=== PATIENT | male | born 1970 | race African-American/Black ===

== ENCOUNTER 2019-11-29 13:00 | Inpatient (IN) | payer MEDICAID ==
[~2019-11-29] VITALS: Ht 182.9 cm; Wt 86.6 kg
[2019-11-29] MEDS ORDERED: SODIUM CHLORIDE 0.9% 1,000 ML IV ONE ×2 (14:17→15:55)
[2019-11-29] MEDS ORDERED: KETOROLAC 30MG/ML VIAL IV STA (14:17)
[2019-11-29 14:41] LABS: CHLORIDE 100 mEq/L (98-107)
[2019-11-29 14:43] LABS: HEMATOCRIT. 45.8 % (42.0-52.0); HEMOGLOBIN. 15.6 g/dL (14.0-18.0); INR 1.1; MEAN CORPUSCULAR HEMOGLOBIN 28.5 pg (28.0-32.0); MEAN CORPUSCULAR VOLUME 83.8 fL (80.0-94.0); MEAN PLATELET VOLUME 8.5 fl (7.4-10.4); PARTIAL THROMBOPLASTIN TIME 32.8 sec (23.4-31.0); PLATELET 310 x1000/uL (130-400); PROTHROMBIN TIME 11.4 sec (9.6-11.0); RED BLOOD CELL COUNT 5.47 mill/uL (4.7-6.1); RED CELL DISTRIBUTION WIDTH 13.4 % (11.6-14.6)
[2019-11-29 14:44] LABS: CLARITY URINE TURBID (CLEAR); COLOR URINE DARK YELLOW (YELLOW); KETONES URINE TRACE (NEGATIVE); LEUKOCYTE ESTERASE URINE NEGATIVE (NEGATIVE); NITRITE URINE NEGATIVE (NEGATIVE); OCCULT BLOOD URINE 2+ (NEGATIVE); PROTEIN URINE 3+ (NEGATIVE)
[2019-11-29 15:18] LABS: PLATELET ESTIMATE NORMAL
[2019-11-29] MEDS ORDERED: MORPHINE SULFATE 4 MG/ML CPJ (NOT FOR IM USE) IV STA (15:55)
[2019-11-29] MEDS ORDERED: ONDANSETRON HCL 4MG/2ML INJ IV STA (15:55)
[2019-11-29] MEDS ORDERED: PIPERACILLIN/TAZ 3.375G PREMIX 50 ML IV ONE (16:00)
[2019-11-29] MEDS ORDERED: SKIN ADHESIVE 0.7 GM EA TOP ONE (16:42)
[2019-11-29] MEDS ORDERED: BUPIVACAINE HCL 0.5% (5MG/ML) 50ML ONE (16:43)
[2019-11-29] MEDS ORDERED: PROPOFOL 200MG/20ML VIAL IV ONE (16:53)
[2019-11-29] MEDS ORDERED: FENTANYL CITRATE/PF 50MCG/ML 2ML VIAL ONE (16:53)
[2019-11-29] MEDS ORDERED: MIDAZOLAM HCL 2 MG/2 ML VIAL ONE (16:53)
[2019-11-29] MEDS ORDERED: SUCCINYLCHOLINE CHLORIDE 200MG/10ML IV ONE (16:54)
[2019-11-29] MEDS ORDERED: ROCURONIUM BROMIDE 10MG/ML VIAL 5ML IV ONE (16:56)
[2019-11-29] MEDS ORDERED: EPHEDRINE SULFATE 50MG/ML VIAL ONE (17:02)
[2019-11-29] MEDS ORDERED: ESMOLOL HCL 10MG/ML 10ML VIAL IV ONE (17:42)
[2019-11-29] MEDS ORDERED: ACETAMINOPHEN 325MG TABLET PO PRN (17:45)
[2019-11-29] MEDS ORDERED: MORPHINE SULFATE 2 MG/ML CPJ (NOT FOR IM USE) IV PRN (17:45)
[2019-11-29] MEDS ORDERED: MORPHINE SULFATE 4 MG/ML CPJ (NOT FOR IM USE) IV PRN (17:45)
[2019-11-29] MEDS ORDERED: HYDROCODONE/ACETAMINOPHEN 5/325MG TABLET PO PRN ×2 (17:45)
[2019-11-29] MEDS ORDERED: PHENYLEPHRINE HCL 10 MG/ML 1ML (IV VIAL) IV ONE (18:00)
[2019-11-29] MEDS ORDERED: NEOSTIGMINE METHYLSULFATE 1MG/ML 10 ML VIAL ONE (18:28)
[2019-11-29] MEDS ORDERED: GLYCOPYRROLATE 0.2 MG/ML 2ML VIAL ONE (18:29)
[2019-11-29] MEDS ORDERED: DIPHENHYDRAMINE 50MG/ML VIAL IV PRN (18:30)
[2019-11-29] MEDS ORDERED: IPRATROPIUM/ALBUTEROL 0.5-3(2.5)MG/3ML NEB HHN PRN (18:30)
[2019-11-29 18:42] LABS: PHOSPHORUS 3.8 mg/dL (2.5-4.9)
[2019-11-29] MEDS ORDERED: HYDROMORPHONE HCL/PF 2MG/ML CPJ IV PRN (19:30)
[2019-11-29] MEDS ORDERED: CEFTRIAXONE 1 G PREMIX 50 ML IV SCH (20:00)
[2019-11-29] MEDS ORDERED: DEXT 5%/0.45% NACL KCL 20MEQ/L 1,000 ML IV SCH (20:00)
[2019-11-29] MEDS ORDERED: LABETALOL 5MG/ML SYR 20 MG/4 ML SYRINGE IV NR (20:20)
[2019-11-29 21:00] VITALS: BP 146/91
[2019-11-30] VITALS: BP 99/68
[2019-11-30] MEDS ORDERED: PIPERACILLIN/TAZ 3.375G PREMIX 50 ML IV SCH
[2019-11-30] MEDS: PIPERACILLIN/TAZOBACTAM 2.25 G in DEXTROSE 5% WATER 50 ML IV SCH ×5 (00:45→20:58)
[2019-11-30] MEDS: SODIUM CHLORIDE 0.9% 1,000 ML IV SCH ×3 (00:47→21:30)
[2019-11-30 04:00] VITALS: BP 95/59
[2019-11-30 06:55] LABS: HEMATOCRIT. 41.1 % (42.0-52.0); HEMOGLOBIN. 13.8 g/dL (14.0-18.0); MEAN CORPUSCULAR HEMOGLOBIN 28.1 pg (28.0-32.0); MEAN CORPUSCULAR VOLUME 83.8 fL (80.0-94.0); MEAN PLATELET VOLUME 8.6 fl (7.4-10.4); PLATELET 285 x1000/uL (130-400); RED BLOOD CELL COUNT 4.91 mill/uL (4.7-6.1); RED CELL DISTRIBUTION WIDTH 13.8 % (11.6-14.6)
[2019-11-30 07:29] LABS: CHLORIDE 105 mEq/L (98-107)
[2019-11-30 07:35] LABS: LDL CHOLESTEROL 36 mg/dL (5-100)
[2019-11-30 07:37] LABS: HDL CHOLESTEROL 17 mg/dL (40-59)
[2019-11-30] MEDS ORDERED: DEXTROSE 50% WATER 50ML SYRINGE IV PRN (07:45)
[2019-11-30] MEDS: INSULIN LISPRO 100 UNITS/ML SUBCUT SCH ×4 (07:50→21:34)
[2019-11-30 08:00] VITALS: BP 84/55
[2019-11-30] MEDS: BLOOD SUGAR DIAGNOSTIC STRIP TEST SCH ×4 (08:00→21:00)
[2019-11-30 12:00] VITALS: BP 95/61
[2019-11-30 12:42] LABS: PLATELET ESTIMATE NORMAL
[2019-11-30 16:00] VITALS: BP 102/68
[2019-11-30] MEDS ORDERED: ALBUMIN HUMAN 25GM/100ML (25%) IV SCH (16:00)
[2019-11-30 20:00] VITALS: BP 106/66
[2019-11-30] MEDS: SODIUM CHLORIDE 0.9% INJ 3ML FLUSH IVF SCH (21:30)
[2019-12-01] VITALS: BP 114/73
[2019-12-01] MEDS: PIPERACILLIN/TAZOBACTAM 2.25 G in DEXTROSE 5% WATER 50 ML IV SCH ×4 (02:17→20:42)
[2019-12-01 04:00] VITALS: BP 117/74
[2019-12-01] MEDS: SODIUM CHLORIDE 0.9% 1,000 ML IV SCH ×3 (05:56→20:49)
[2019-12-01] MEDS: INSULIN LISPRO 100 UNITS/ML SUBCUT SCH ×4 (06:32→20:41)
[2019-12-01] MEDS: BLOOD SUGAR DIAGNOSTIC STRIP TEST SCH ×4 (06:32→20:41)
[2019-12-01 07:59] LABS: BASOPHILS % 0.1 % (0.0-2.0); EOSINOPHILS % 0.2 % (0.0-5.0); HEMATOCRIT. 32.2 % (42.0-52.0); HEMOGLOBIN. 11.3 g/dL (14.0-18.0); LYMPHOCYTES % 8.4 % (20.0-50.0); MEAN CORPUSCULAR HEMOGLOBIN 29.3 pg (28.0-32.0); MEAN CORPUSCULAR VOLUME 83.5 fL (80.0-94.0); MEAN PLATELET VOLUME 8.3 fl (7.4-10.4); MONOCYTES % 14.1 % (2.0-8.0); NEUTROPHILS % 77.2 % (40.0-76.0); PLATELET 233 x1000/uL (130-400); RED BLOOD CELL COUNT 3.86 mill/uL (4.7-6.1); RED CELL DISTRIBUTION WIDTH 13.8 % (11.6-14.6)
[2019-12-01 08:00] VITALS: BP 123/77
[2019-12-01 08:33] LABS: PHOSPHORUS 3.2 mg/dL (2.5-4.9)
[2019-12-01 08:37] LABS: T4 FREE 1.39 ng/dL (0.76-1.46)
[2019-12-01] MEDS ORDERED: SODIUM BICARBONATE 4% (2.4MEQ) 5ML VIAL IV ONE (09:57)
[2019-12-01] MEDS ORDERED: LIDOCAINE HCL 1% 20ML VIAL (Pyxis) INJ ONE (09:57)
[2019-12-01 11:50] VITALS: BP 142/95
[2019-12-01] MEDS ORDERED: HEPARIN SODIUM 1,000 UNIT/1ML VIAL IV NR (16:00)
[2019-12-01 20:00] VITALS: BP 135/78
[2019-12-02] VITALS: BP 140/84
[2019-12-02] MEDS: PIPERACILLIN/TAZOBACTAM 2.25 G in DEXTROSE 5% WATER 50 ML IV SCH ×4 (02:06→20:39)
[2019-12-02] MEDS: ONDANSETRON HCL 4MG/2ML INJ IV PRN ×2 (05:54→18:54)
[2019-12-02] MEDS: SODIUM CHLORIDE 0.9% INJ 3ML FLUSH IVF SCH ×3 (05:55→21:18)
[2019-12-02 06:15] LABS: HEMATOCRIT. 33.9 % (42.0-52.0); HEMOGLOBIN. 11.7 g/dL (14.0-18.0); MEAN CORPUSCULAR HEMOGLOBIN 28.8 pg (28.0-32.0); MEAN CORPUSCULAR VOLUME 83.3 fL (80.0-94.0); MEAN PLATELET VOLUME 8.2 fl (7.4-10.4); PLATELET 277 x1000/uL (130-400); RED BLOOD CELL COUNT 4.07 mill/uL (4.7-6.1)
[2019-12-02] MEDS: BLOOD SUGAR DIAGNOSTIC STRIP TEST SCH ×4 (06:41→21:13)
[2019-12-02 08:00] VITALS: BP 150/92
[2019-12-02] MEDS: INSULIN LISPRO 100 UNITS/ML SUBCUT SCH ×4 (08:56→21:18)
[2019-12-02 12:00] VITALS: BP 160/100
[2019-12-02] MEDS: CLONIDINE 0.1MG TABLET PO PRN (13:48)
[2019-12-02 13:49] LABS: ATYPICAL LYMPHOCYTES 1
[2019-12-02 13:50] LABS: PLATELET ESTIMATE NORMAL
[2019-12-02 14:35] LABS: BG BASE EXCESS -1.4 mmol/L (-2.0-2.0); BG CARBOXYHEMOGLOBIN 0.3 % (0.5-1.5); BG DEOXYHEMOGLOBIN 4.5 % (0.0-5.0); BG FRACTION INSPIRED OXYGEN 21; BG HCO3 ACT 21.8 mmol/L (22.0-26.0); BG METHEMOGLOBIN 0.3 % (0.0-1.5); BG OXYGEN SATURATION 95.5 % (92.0-98.5); BG OXYHEMOGLOBIN 94.9 % (94.0-97.0); BG PCO2 32.6 mmHg (35.0-45.0); BG PH 7.444 (7.350-7.450); BG PO2 77.7 mmHg (75.0-100.0); BG SAMPLE SITE RIGHT BRACHIAL; BG TOTAL HEMOGLOBIN 13.6 g/dL (12.0-18.0); BG VENT MODE ROOM AIR
[2019-12-02 16:00] VITALS: BP 134/92
[2019-12-02] MEDS ORDERED: FUROSEMIDE 100MG/10ML VIAL IVP NR (16:00)
[2019-12-02] MEDS ORDERED: METOCLOPRAMIDE HCL 10MG/2ML VIAL IV NR (17:00)
[2019-12-02] MEDS ORDERED: DILTIAZEM HCL 5MG/ML 5ML VIAL IV NR (17:30)
[2019-12-02 20:00] VITALS: BP 152/99
[2019-12-02] MEDS ORDERED: SODIUM CHLORIDE 0.9% 500 ML IV ONE ×2 (23:43)
[2019-12-03] VITALS: BP 129/86
[2019-12-03] MEDS: SODIUM CHLORIDE 0.9% 1,000 ML IV SCH ×4 (00:14→23:05)
[2019-12-03] MEDS: PIPERACILLIN/TAZOBACTAM 2.25 G in DEXTROSE 5% WATER 50 ML IV SCH ×4 (01:16→20:42)
[2019-12-03 04:00] VITALS: BP 149/93
[2019-12-03] MEDS: SODIUM CHLORIDE 0.9% INJ 3ML FLUSH IVF SCH ×3 (05:01→21:05)
[2019-12-03] MEDS: BLOOD SUGAR DIAGNOSTIC STRIP TEST SCH ×4 (06:22→21:05)
[2019-12-03 07:25] LABS: CHLORIDE 100 mEq/L (98-107)
[2019-12-03 07:26] LABS: HEMATOCRIT. 32.6 % (42.0-52.0); MEAN CORPUSCULAR HEMOGLOBIN 28.3 pg (28.0-32.0); MEAN CORPUSCULAR VOLUME 83.6 fL (80.0-94.0); MEAN PLATELET VOLUME 7.8 fl (7.4-10.4); PLATELET 284 x1000/uL (130-400); RED CELL DISTRIBUTION WIDTH 14.4 % (11.6-14.6)
[2019-12-03 07:37] LABS: PHOSPHORUS 5.5 mg/dL (2.5-4.9)
[2019-12-03 07:39] LABS: CREATINE KINASE 132 IU/L (39-308)
[2019-12-03 07:43] LABS: CREATINE KINASE MB FRACTION 1.1 ng/mL (0.5-3.6)
[2019-12-03 08:06] VITALS: BP 131/77
[2019-12-03] MEDS: INSULIN LISPRO 100 UNITS/ML SUBCUT SCH ×4 (08:48→21:00)
[2019-12-03 11:33] LABS: PLATELET ESTIMATE NORMAL
[2019-12-03 12:05] VITALS: BP 125/83
[2019-12-03 16:23] VITALS: BP 147/83
[2019-12-03 20:00] VITALS: BP 146/83
[2019-12-03] MEDS: ENOXAPARIN 30MG/0.3ML SYR SUBCUT SCH (21:05)
[2019-12-04] VITALS: BP 150/86
[2019-12-04] MEDS: PIPERACILLIN/TAZOBACTAM 2.25 G in DEXTROSE 5% WATER 50 ML IV SCH ×4 (01:00→22:22)
[2019-12-04 04:00] VITALS: BP 152/87
[2019-12-04] MEDS: SODIUM CHLORIDE 0.9% INJ 3ML FLUSH IVF SCH ×3 (05:01→22:00)
[2019-12-04] MEDS: BLOOD SUGAR DIAGNOSTIC STRIP TEST SCH ×4 (06:34→21:00)
[2019-12-04 06:41] LABS: HEMATOCRIT. 34.8 % (42.0-52.0); HEMOGLOBIN. 11.6 g/dL (14.0-18.0); MEAN PLATELET VOLUME 7.8 fl (7.4-10.4); PLATELET 293 x1000/uL (130-400); RED BLOOD CELL COUNT 4.15 mill/uL (4.7-6.1); RED CELL DISTRIBUTION WIDTH 14.2 % (11.6-14.6)
[2019-12-04] MEDS: INSULIN LISPRO 100 UNITS/ML SUBCUT SCH ×4 (07:46→21:00)
[2019-12-04 08:00] VITALS: BP 161/89
[2019-12-04] MEDS: SODIUM CHLORIDE 0.9% 1,000 ML IV SCH ×2 (08:29→22:24)
[2019-12-04 09:01] LABS: PHOSPHORUS 5.9 mg/dL (2.5-4.9)
[2019-12-04 09:31] LABS: PLATELET ESTIMATE NORMAL
[2019-12-04 16:00] VITALS: BP 152/94
[2019-12-04] MEDS ORDERED: LINEZOLID 600 MG PREMIX 300 ML IV SCH (16:30)
[2019-12-04] MEDS ORDERED: MICAFUNGIN 100 MG in SODIUM CHLORIDE 0.9% 100 ML IV SCH (18:00)
[2019-12-04 20:00] VITALS: BP 143/92
[2019-12-04] MEDS: LINEZOLID 600 MG PREMIX 300 ML IV SCH (22:23)
[2019-12-04] MEDS: MICAFUNGIN 100 MG in SODIUM CHLORIDE 0.9% 100 ML IV SCH (22:26)
[2019-12-04] MEDS: ENOXAPARIN 30MG/0.3ML SYR SUBCUT SCH (22:27)
[2019-12-05] VITALS: BP 159/84
[2019-12-05 04:00] VITALS: BP 159/85
[2019-12-05] MEDS: SODIUM CHLORIDE 0.9% INJ 3ML FLUSH IVF SCH ×3 (06:00→21:29)
[2019-12-05] MEDS: PIPERACILLIN/TAZOBACTAM 2.25 G in DEXTROSE 5% WATER 50 ML IV SCH ×3 (06:30→21:23)
[2019-12-05] MEDS: BLOOD SUGAR DIAGNOSTIC STRIP TEST SCH ×4 (06:30→21:29)
[2019-12-05 07:29] LABS: HEMOGLOBIN. 11.9 g/dL (14.0-18.0); MEAN CORPUSCULAR HEMOGLOBIN 28.6 pg (28.0-32.0); MEAN PLATELET VOLUME 7.7 fl (7.4-10.4); PLATELET 300 x1000/uL (130-400); RED BLOOD CELL COUNT 4.16 mill/uL (4.7-6.1); RED CELL DISTRIBUTION WIDTH 14.1 % (11.6-14.6)
[2019-12-05] MEDS: INSULIN LISPRO 100 UNITS/ML SUBCUT SCH ×4 (07:50→21:29)
[2019-12-05 08:04] VITALS: BP 145/84
[2019-12-05] MEDS: LINEZOLID 600 MG PREMIX 300 ML IV SCH ×2 (08:41→21:23)
[2019-12-05 12:02] VITALS: BP 155/78
[2019-12-05 13:18] LABS: PLATELET ESTIMATE NORMAL
[2019-12-05] MEDS: SODIUM CHLORIDE 0.9% 1,000 ML IV SCH ×2 (13:52→14:02)
[2019-12-05] MEDS: ACETAMINOPHEN 325MG TABLET PO PRN (14:19)
[2019-12-05 14:29] LABS: PHOSPHORUS 6.5 mg/dL (2.5-4.9)
[2019-12-05 16:02] VITALS: BP 148/84
[2019-12-05 20:00] VITALS: BP 165/80
[2019-12-05] MEDS: MICAFUNGIN 100 MG in SODIUM CHLORIDE 0.9% 100 ML IV SCH (21:23)
[2019-12-05] MEDS: ENOXAPARIN 30MG/0.3ML SYR SUBCUT SCH (21:23)
[2019-12-05 22:09] LABS: CLARITY URINE CLOUDY (CLEAR); COLOR URINE RED (YELLOW); KETONES URINE NEGATIVE (NEGATIVE); LEUKOCYTE ESTERASE URINE 1+ (NEGATIVE); NITRITE URINE NEGATIVE (NEGATIVE); OCCULT BLOOD URINE 3+ (NEGATIVE); PH URINE 6.5 (4.5-8.0); PROTEIN URINE 1+ (NEGATIVE); SPECIFIC GRAVITY URINE 1.009 (1.005-1.030); UROBILINOGEN URINE 0.2 E.U./dL (0.2-1.0)
[2019-12-06] VITALS: BP 161/82
[2019-12-06 04:00] VITALS: BP 157/86
[2019-12-06] MEDS: SODIUM CHLORIDE 0.9% INJ 3ML FLUSH IVF SCH ×3 (06:00→22:19)
[2019-12-06] MEDS: PIPERACILLIN/TAZOBACTAM 2.25 G in DEXTROSE 5% WATER 50 ML IV SCH ×3 (06:57→22:19)
[2019-12-06 07:01] LABS: HEMATOCRIT. 34.7 % (42.0-52.0); HEMOGLOBIN. 11.7 g/dL (14.0-18.0); MEAN CORPUSCULAR HEMOGLOBIN 28.4 pg (28.0-32.0); MEAN CORPUSCULAR VOLUME 84.3 fL (80.0-94.0); MEAN PLATELET VOLUME 7.9 fl (7.4-10.4); PLATELET 297 x1000/uL (130-400); RED BLOOD CELL COUNT 4.12 mill/uL (4.7-6.1)
[2019-12-06] MEDS: BLOOD SUGAR DIAGNOSTIC STRIP TEST SCH ×4 (07:09→20:39)
[2019-12-06 07:34] LABS: PHOSPHORUS 7.2 mg/dL (2.5-4.9)
[2019-12-06 08:00] VITALS: BP 146/63
[2019-12-06 10:17] LABS: PLATELET ESTIMATE NORMAL
[2019-12-06] MEDS: INSULIN LISPRO 100 UNITS/ML SUBCUT SCH ×4 (10:30→20:38)
[2019-12-06] MEDS: LINEZOLID 600 MG PREMIX 300 ML IV SCH ×2 (10:37→20:38)
[2019-12-06] MEDS: SODIUM CHLORIDE 0.9% 1,000 ML IV SCH (10:38)
[2019-12-06 12:00] VITALS: BP 162/81
[2019-12-06 16:00] VITALS: BP 160/88
[2019-12-06 16:16] LABS: HEPATITIS B SURFACE ANTIGEN NEGATIVE
[2019-12-06 16:46] LABS: HEPATITIS A AB IGM NEGATIVE (NEGATIVE)
[2019-12-06] MEDS: CLONIDINE 0.1MG TABLET PO PRN (17:49)
[2019-12-06 20:00] VITALS: BP 148/76
[2019-12-06] MEDS: MICAFUNGIN 100 MG in SODIUM CHLORIDE 0.9% 100 ML IV SCH (20:38)
[2019-12-06] MEDS: ENOXAPARIN 30MG/0.3ML SYR SUBCUT SCH (20:38)
[2019-12-07] VITALS: BP 158/89
[2019-12-07 04:00] VITALS: BP 168/91
[2019-12-07] MEDS: PIPERACILLIN/TAZOBACTAM 2.25 G in DEXTROSE 5% WATER 50 ML IV SCH ×3 (05:49→23:34)
[2019-12-07] MEDS: SODIUM CHLORIDE 0.9% INJ 3ML FLUSH IVF SCH ×3 (05:50→22:00)
[2019-12-07] MEDS: BLOOD SUGAR DIAGNOSTIC STRIP TEST SCH ×4 (06:21→21:00)
[2019-12-07 07:29] LABS: HEMATOCRIT. 35.4 % (42.0-52.0); HEMOGLOBIN. 11.8 g/dL (14.0-18.0); MEAN CORPUSCULAR HEMOGLOBIN 28.3 pg (28.0-32.0); MEAN CORPUSCULAR VOLUME 84.5 fL (80.0-94.0); MEAN PLATELET VOLUME 7.6 fl (7.4-10.4); PLATELET 328 x1000/uL (130-400); RED BLOOD CELL COUNT 4.19 mill/uL (4.7-6.1); RED CELL DISTRIBUTION WIDTH 13.8 % (11.6-14.6)
[2019-12-07 08:00] LABS: PHOSPHORUS 5.3 mg/dL (2.5-4.9)
[2019-12-07 08:26] LABS: PLATELET ESTIMATE NORMAL
[2019-12-07] MEDS: LINEZOLID 600 MG PREMIX 300 ML IV SCH ×2 (08:27→20:29)
[2019-12-07] MEDS: INSULIN LISPRO 100 UNITS/ML SUBCUT SCH ×4 (08:28→20:29)
[2019-12-07] MEDS: AMLODIPINE 2.5MG TABLET PO SCH (09:35)
[2019-12-07 12:22] VITALS: BP 174/91
[2019-12-07 16:20] VITALS: BP 158/89
[2019-12-07 20:00] VITALS: BP 157/86
[2019-12-07] MEDS: ENOXAPARIN 30MG/0.3ML SYR SUBCUT SCH (20:28)
[2019-12-07] MEDS: MICAFUNGIN 100 MG in SODIUM CHLORIDE 0.9% 100 ML IV SCH (20:30)
[2019-12-08] VITALS: BP 171/95
[2019-12-08] MEDS: CLONIDINE 0.1MG TABLET PO PRN (02:11)
[2019-12-08 04:00] VITALS: BP 175/92
[2019-12-08] MEDS: PIPERACILLIN/TAZOBACTAM 2.25 G in DEXTROSE 5% WATER 50 ML IV SCH ×3 (05:33→22:09)
[2019-12-08] MEDS: SODIUM CHLORIDE 0.9% INJ 3ML FLUSH IVF SCH ×3 (06:01→22:09)
[2019-12-08] MEDS: BLOOD SUGAR DIAGNOSTIC STRIP TEST SCH ×4 (06:24→20:26)
[2019-12-08 07:06] LABS: BASOPHILS % 0.5 % (0.0-2.0); EOSINOPHILS % 0.8 % (0.0-5.0); HEMATOCRIT. 32.6 % (42.0-52.0); HEMOGLOBIN. 11.2 g/dL (14.0-18.0); LYMPHOCYTES % 9.6 % (20.0-50.0); MEAN CORPUSCULAR HEMOGLOBIN 28.8 pg (28.0-32.0); MEAN CORPUSCULAR VOLUME 83.5 fL (80.0-94.0); MEAN PLATELET VOLUME 7.7 fl (7.4-10.4); MONOCYTES % 10.1 % (2.0-8.0); PLATELET 329 x1000/uL (130-400); RED BLOOD CELL COUNT 3.91 mill/uL (4.7-6.1); RED CELL DISTRIBUTION WIDTH 13.8 % (11.6-14.6)
[2019-12-08 07:11] LABS: HIV SCREEN 4G Non Reactive (Non Reactive)
[2019-12-08] MEDS: LINEZOLID 600 MG PREMIX 300 ML IV SCH ×2 (07:37→20:24)
[2019-12-08] MEDS: AMLODIPINE 2.5MG TABLET PO SCH (07:37)
[2019-12-08] MEDS: INSULIN LISPRO 100 UNITS/ML SUBCUT SCH ×4 (07:40→20:28)
[2019-12-08 08:00] VITALS: BP 174/94
[2019-12-08] MEDS ORDERED: METOPROLOL TARTRATE 25MG TABLET PO NR (10:45)
[2019-12-08 11:34] VITALS: BP 162/92
[2019-12-08 16:00] VITALS: BP 154/84
[2019-12-08 20:00] VITALS: BP 165/88
[2019-12-08] MEDS: ENOXAPARIN 30MG/0.3ML SYR SUBCUT SCH (20:26)
[2019-12-08] MEDS: METOPROLOL TARTRATE 25MG TABLET PO SCH (20:26)
[2019-12-08] MEDS: MICAFUNGIN 100 MG in SODIUM CHLORIDE 0.9% 100 ML IV SCH (21:27)
[2019-12-09] VITALS: BP 147/82
[2019-12-09 04:00] VITALS: BP 170/91
[2019-12-09] MEDS: SODIUM CHLORIDE 0.9% INJ 3ML FLUSH IVF SCH ×3 (05:14→22:03)
[2019-12-09] MEDS: PIPERACILLIN/TAZOBACTAM 2.25 G in DEXTROSE 5% WATER 50 ML IV SCH ×2 (05:14→13:23)
[2019-12-09] MEDS: BLOOD SUGAR DIAGNOSTIC STRIP TEST SCH ×4 (05:45→21:16)
[2019-12-09] MEDS: CLONIDINE 0.1MG TABLET PO PRN (06:03)
[2019-12-09] MEDS: INSULIN LISPRO 100 UNITS/ML SUBCUT SCH ×4 (07:39→21:00)
[2019-12-09 08:00] VITALS: BP 127/78
[2019-12-09] MEDS: METOPROLOL TARTRATE 25MG TABLET PO SCH ×2 (08:37→22:01)
[2019-12-09] MEDS: LINEZOLID 600 MG PREMIX 300 ML IV SCH ×2 (08:38→20:39)
[2019-12-09] MEDS ORDERED: AMLODIPINE 5MG TABLET PO SCH (09:00)
[2019-12-09 12:00] VITALS: BP 159/89
[2019-12-09 12:10] LABS: HEMOGLOBIN. 11.7 g/dL (14.0-18.0); MEAN CORPUSCULAR HEMOGLOBIN 29.8 pg (28.0-32.0); RED BLOOD CELL COUNT 3.93 mill/uL (4.7-6.1); RED CELL DISTRIBUTION WIDTH 13.2 % (11.6-14.6)
[2019-12-09 12:48] LABS: PLATELET 370 x1000/uL (130-400)
[2019-12-09 12:50] LABS: PLATELET ESTIMATE NORMAL
[2019-12-09 16:00] VITALS: BP 133/80
[2019-12-09 17:33] LABS: INR 1.1; PROTHROMBIN TIME 12.1 sec (9.6-11.0)
[2019-12-09] MEDS: ACETAMINOPHEN 325MG TABLET PO PRN (18:46)
[2019-12-09] MEDS: ENOXAPARIN 30MG/0.3ML SYR SUBCUT SCH (22:01)
[2019-12-10] VITALS (7 sets, daily range): BP systolic 135–169; BP diastolic 72–90
[2019-12-10] MEDS: MICAFUNGIN 100 MG in SODIUM CHLORIDE 0.9% 100 ML IV SCH ×2 (00:03→22:37)
[2019-12-10] MEDS: PIPERACILLIN/TAZOBACTAM 2.25 G in DEXTROSE 5% WATER 50 ML IV SCH ×4 (01:38→23:35)
[2019-12-10 05:50] LABS: BASOPHILS % 0.3 % (0.0-2.0); EOSINOPHILS % 0.7 % (0.0-5.0); HEMATOCRIT. 33.5 % (42.0-52.0); HEMOGLOBIN. 11.3 g/dL (14.0-18.0); LYMPHOCYTES % 12.8 % (20.0-50.0); MEAN CORPUSCULAR HEMOGLOBIN 28.2 pg (28.0-32.0); MEAN CORPUSCULAR VOLUME 83.7 fL (80.0-94.0); MEAN PLATELET VOLUME 7.4 fl (7.4-10.4); MONOCYTES % 11.8 % (2.0-8.0); NEUTROPHILS % 74.4 % (40.0-76.0); PLATELET 461 x1000/uL (130-400); RED CELL DISTRIBUTION WIDTH 13.5 % (11.6-14.6)
[2019-12-10 06:25] LABS: CHLORIDE 104 mEq/L (98-107)
[2019-12-10 06:39] LABS: PHOSPHORUS 5.1 mg/dL (2.5-4.9)
[2019-12-10] MEDS: BLOOD SUGAR DIAGNOSTIC STRIP TEST SCH ×4 (06:51→21:39)
[2019-12-10] MEDS: INSULIN LISPRO 100 UNITS/ML SUBCUT SCH ×4 (06:51→21:41)
[2019-12-10] MEDS: SODIUM CHLORIDE 0.9% INJ 3ML FLUSH IVF SCH ×4 (07:00→21:39)
[2019-12-10] MEDS: LINEZOLID 600 MG PREMIX 300 ML IV SCH ×2 (07:12→21:10)
[2019-12-10] MEDS: AMLODIPINE 10MG TABLET PO SCH (08:00)
[2019-12-10] MEDS: METOPROLOL TARTRATE 25MG TABLET PO SCH ×2 (08:00→21:34)
[2019-12-10] MEDS: HYDRALAZINE HCL 50MG TABLET PO SCH (21:34)
[2019-12-10] MEDS: ENOXAPARIN 30MG/0.3ML SYR SUBCUT SCH (21:35)
[2019-12-11] VITALS (7 sets, daily range): BP systolic 117–159; BP diastolic 78–95
[2019-12-11 06:52] LABS: BASOPHILS % 0.3 % (0.0-2.0); EOSINOPHILS % 0.9 % (0.0-5.0); HEMATOCRIT. 33.2 % (42.0-52.0); HEMOGLOBIN. 11.3 g/dL (14.0-18.0); LYMPHOCYTES % 13.1 % (20.0-50.0); MEAN CORPUSCULAR HEMOGLOBIN 28.3 pg (28.0-32.0); MEAN CORPUSCULAR VOLUME 83.5 fL (80.0-94.0); MEAN PLATELET VOLUME 7.5 fl (7.4-10.4); MONOCYTES % 11.3 % (2.0-8.0); NEUTROPHILS % 74.4 % (40.0-76.0); PLATELET 459 x1000/uL (130-400); RED BLOOD CELL COUNT 3.97 mill/uL (4.7-6.1); RED CELL DISTRIBUTION WIDTH 13.4 % (11.6-14.6)
[2019-12-11] MEDS: BLOOD SUGAR DIAGNOSTIC STRIP TEST SCH ×4 (06:53→20:28)
[2019-12-11] MEDS: INSULIN LISPRO 100 UNITS/ML SUBCUT SCH ×4 (06:53→21:31)
[2019-12-11] MEDS: PIPERACILLIN/TAZOBACTAM 2.25 G in DEXTROSE 5% WATER 50 ML IV SCH ×3 (06:54→22:07)
[2019-12-11 07:09] LABS: PHOSPHORUS 4.6 mg/dL (2.5-4.9)
[2019-12-11] MEDS: HYDRALAZINE HCL 50MG TABLET PO SCH ×2 (09:17→20:30)
[2019-12-11] MEDS: AMLODIPINE 10MG TABLET PO SCH (09:18)
[2019-12-11] MEDS: LINEZOLID 600 MG PREMIX 300 ML IV SCH ×2 (09:18→20:26)
[2019-12-11] MEDS: METOPROLOL TARTRATE 25MG TABLET PO SCH ×2 (09:18→20:27)
[2019-12-11] MEDS: SODIUM CHLORIDE 0.9% INJ 3ML FLUSH IVF SCH ×2 (13:06→21:34)
[2019-12-11] MEDS: ENOXAPARIN 30MG/0.3ML SYR SUBCUT SCH (20:28)
[2019-12-11] MEDS: MICAFUNGIN 100 MG in SODIUM CHLORIDE 0.9% 100 ML IV SCH (21:34)
[2019-12-12] VITALS: BP 159/95
[2019-12-12 02:00] VITALS: BP 159/95
[2019-12-12 04:00] VITALS: BP 159/95
[2019-12-12] MEDS: PIPERACILLIN/TAZOBACTAM 2.25 G in DEXTROSE 5% WATER 50 ML IV SCH ×2 (05:48→14:00)
[2019-12-12] MEDS: SODIUM CHLORIDE 0.9% INJ 3ML FLUSH IVF SCH ×2 (05:48→14:01)
[2019-12-12] MEDS: ACETAMINOPHEN 325MG TABLET PO PRN (05:57)
[2019-12-12] MEDS: BLOOD SUGAR DIAGNOSTIC STRIP TEST SCH ×2 (06:22→12:20)
[2019-12-12 07:00] LABS: CHLORIDE 103 mEq/L (98-107)
[2019-12-12 07:01] LABS: BASOPHILS % 0.4 % (0.0-2.0); EOSINOPHILS % 0.7 % (0.0-5.0); HEMATOCRIT. 32.3 % (42.0-52.0); HEMOGLOBIN. 10.9 g/dL (14.0-18.0); LYMPHOCYTES % 13.8 % (20.0-50.0); MEAN CORPUSCULAR HEMOGLOBIN 28.3 pg (28.0-32.0); MEAN CORPUSCULAR VOLUME 83.4 fL (80.0-94.0); MEAN PLATELET VOLUME 7.3 fl (7.4-10.4); MONOCYTES % 12.9 % (2.0-8.0); NEUTROPHILS % 72.2 % (40.0-76.0); PLATELET 524 x1000/uL (130-400); RED BLOOD CELL COUNT 3.87 mill/uL (4.7-6.1); RED CELL DISTRIBUTION WIDTH 12.9 % (11.6-14.6)
[2019-12-12] MEDS: INSULIN LISPRO 100 UNITS/ML SUBCUT SCH ×2 (07:17→13:58)
[2019-12-12 07:18] LABS: PHOSPHORUS 4.2 mg/dL (2.5-4.9)
[2019-12-12 08:00] VITALS: BP 154/90
[2019-12-12] MEDS: AMLODIPINE 10MG TABLET PO SCH (09:11)
[2019-12-12] MEDS: HYDRALAZINE HCL 50MG TABLET PO SCH (09:11)
[2019-12-12] MEDS: METOPROLOL TARTRATE 25MG TABLET PO SCH (09:11)
[2019-12-12 12:00] VITALS: BP 147/86
[2019-12-12 16:29] VITALS: BP 147/86
== END 2019-12-12 17:45 | disposition home or self-care (01) | DRG 710 ==
LOC: ER 13:00 → 6EST 16:20 → 6WST 11-30 16:18
PROVIDERS: ADMIT Internal Medicine; ATTEND Internal Medicine
PROC: 0DTJ4ZZ Resection of Appendix, Percutaneous Endoscopic Approach (ICD-10-PCS; principal; 2019-11-29)
PROC: 02HV33Z Insertion of Infusion Device into Superior Vena Cava, Percutaneous Approach (ICD-10-PCS; 2019-12-01)
PROC: B5181ZA Fluoroscopy of Superior Vena Cava using Low Osmolar Contrast, Guidance (ICD-10-PCS; 2019-12-01)
PROC: B548ZZA Ultrasonography of Superior Vena Cava, Guidance (ICD-10-PCS; 2019-12-01)
PROC: 5A1D70Z Performance of Urinary Filtration, Intermittent, Less than 6 Hours Per Day (ICD-10-PCS; 2019-12-02)
PROC: 5A1D70Z Performance of Urinary Filtration, Intermittent, Less than 6 Hours Per Day (ICD-10-PCS; 2019-12-04)
PROC: 5A1D70Z Performance of Urinary Filtration, Intermittent, Less than 6 Hours Per Day (ICD-10-PCS; 2019-12-06)
PROC: 5A1D70Z Performance of Urinary Filtration, Intermittent, Less than 6 Hours Per Day (ICD-10-PCS; 2019-12-08)
DX: A41.9 Sepsis, unspecified organism (principal); N17.0 Acute kidney failure with tubular necrosis; K35.32 Acute appendicitis with perforation, localized peritonitis, and gangrene, without abscess; K56.7 Ileus, unspecified; E87.1 Hypo-osmolality and hyponatremia; E11.22 Type 2 diabetes mellitus with diabetic chronic kidney disease; E11.65 Type 2 diabetes mellitus with hyperglycemia; E87.5 Hyperkalemia; N39.0 Urinary tract infection, site not specified; N18.9 Chronic kidney disease, unspecified; R65.20 Severe sepsis without septic shock; R31.9 Hematuria, unspecified; I12.9 Hypertensive chronic kidney disease with stage 1 through stage 4 chronic kidney disease, or unspecified chronic kidney disease; D64.9 Anemia, unspecified; Z82.49 Family history of ischemic heart disease and other diseases of the circulatory system; Z83.3 Family history of diabetes mellitus; Z90.49 Acquired absence of other specified parts of digestive tract
CPT/HCPCS: 36415; 36600; 71045; 73706; 74018; 74176; 76937; 77001; 80048; 80053; 80061; 81003; 82375; 82550; 82553; 82805; 82962; 83036; 83605; 83735; 84100; 84134; 84145; 84439; 84443; 84481; 85025; 86705; 86709; 86803; 86850; 86900; 87340; 87389; 87804; 88304; 93005; 93970; 99285; C1725; C1752; C1769; J0330; J0696; J1642; J1644; J1650; J1815; J1885; J1940; J2020; J2248; J2250; J2270; J2370; J2405; J2543; J2704; J2710; J2765; J3010; J3490; J7030; J7050; J7060; P9047